=== PATIENT | female | born 1990 | race African-American/Black ===

== ENCOUNTER 2019-06-12 20:39 | Inpatient (IN) ==
[2019-06-12 21:26] LABS: Apearance,Urine Slightly Hazy (Clear); Bilirubin,Urine Negative (Negative); Blood, Urine Negative (Negative); Calcium Oxalate Crystals,Urine Many /HPF (Few); Glucose,Urine (UA) Negative (Negative); Hyaline Casts,Urine 3 /LPF (0-3); Ketones,Urine Negative (Negative); Mucus,Urine Moderate /LPF (Occasional); Nitrite,Urine Negative (Negative); Protein,Urine 30 MG/DL; RBC,Urine 4 /HPF (0-4); Squamous Epithelial Cell,Urine Occasional /HPF (0-10); Urine Color Yellow (Yellow); WBC,Urine 2 /HPF (0-6)
[2019-06-12 23:03] LABS: Basophils % 0.2 % (0.0-0.8); Eosinophils # 0.1 10*3/uL (0.0-0.87); Eosinophils % 0.5 % (0.00-10.9); Hematocrit 32.4 VOL% (35.7-47.0); Hemoglobin 10.3 GM/DL (12.0-16.0); Immature Granulocytes Absolute 0.09 #; Lymphocytes # 1.7 10*3/uL (1.4-4.0); Lymphocytes % 18.1 % (21.3-54.2); Mean Corpuscular HGB Conc 31.8 GM/DL (32-36); Mean Corpuscular Volume 79.6 FL (87-102); Mean Platelet Volume 8.9 FL (9.6-12.0); Monocytes % 9.6 % (1.7-12.7); NRBC # 0.03 10*3/uL; Neutrophils % 70.6 % (38.7-73.9); Platelet Count 235 T/CUMM (130-400); Red Blood Count 4.07 MC/CUMM (3.8-5.5); Red Cell Distribution Width 18.2 % (9.3-17.3); White Blood Count 9.2 T/CUMM (4-12)
[2019-06-12] MEDS: LACTATED RINGERS 1,000 ML IV SCH (23:05)
[2019-06-12 23:11] LABS: INR 0.9; PT Patient Result 9.5 SECS (9.6-12.2); Partial Thromboplastin Time 26.4 SECS (20.8-36.0)
[2019-06-12 23:18] LABS: Bilirubin,Direct < 0.100 MG/DL (0.0-0.20)
[2019-06-12 23:22] LABS: Alanine Aminotransferase 14 U/L (13-56); Albumin 2.6 G/DL (3.4-5.0); Alkaline Phosphatase 170 U/L (45-117); Aspartate Amino Transferase 13 U/L (0-37); Bilirubin,Total < 0.39 MG/DL (0.2-1.0); Blood Urea Nitrogen 5 MG/DL (7-18); Calcium 8.4 MG/DL (8.5-10.1); Estimated Glom Filtration Rate 148 ML/MIN; Glucose 92 MG/DL (74-106); Osmolality,Calculated 277.3 MOS/KG (273-304)
[2019-06-13] MEDS: LACTATED RINGERS 1,000 ML IV SCH ×3 (07:05→21:57)
[2019-06-13] MEDS ORDERED: BUTORPHANOL 2 MG/ML VIAL IV PRN (08:08)
[2019-06-13] MEDS ORDERED: ONDANSETRON 4 MG/2 ML VIAL IV PRN ×2 (08:08→23:17)
[2019-06-13] MEDS ORDERED: NALOXONE 0.4 MG/ML VIAL IV PRN (20:57)
[2019-06-13] MEDS ORDERED: PROMETHAZINE 25 MG/1 ML VIAL IM ONE (20:57)
[2019-06-13] MEDS ORDERED: ePHEDrine 50 MG/ML AMP IV PRN (20:57)
[2019-06-13] MEDS ORDERED: fentaNYL 2 MCG/ROPIV 0.2% EPID 100 ML EPIDURAL SCH (21:00)
[2019-06-13] MEDS ORDERED: CITRIC ACID/SODIUM CITRATE 30 ML UDCUP ONE (21:08)
[2019-06-13] MEDS ORDERED: FAMOTIDINE 20 MG/2 ML VIAL IV ONE (21:11)
[2019-06-13] MEDS ORDERED: CITRIC ACID/SODIUM CITRATE 30 ML UDCUP PO ONE (21:11)
[2019-06-13] MEDS ORDERED: AMPICILLIN INJ 2,000 MG in SODIUM CHLORIDE 0.9% 100 ML IV SCH (22:00)
[2019-06-13] MEDS ORDERED: SODIUM CHLORIDE 0.9% 100 ML IV ONE (22:31)
[2019-06-13] MEDS ORDERED: OXYTOCIN/LR 20 UNIT/1,000 ML BAG IV ONE ×2 (22:37→23:17)
[2019-06-13] MEDS ORDERED: miSOPROStoL 200 MCG TABLET ONE ×2 (22:44→22:48)
[2019-06-13] MEDS ORDERED: METHYLERGONOVINE 0.2 MG/1 ML AMP ONE ×2 (22:45→22:49)
[2019-06-13] MEDS ORDERED: CARBOPROST TROMETHAMINE 250 MCG/ML AMP IM ONE ×2 (22:45→22:49)
[2019-06-13] MEDS ORDERED: DIPH/TET/ACEL PERT BOOSTER VACCINE 0.5 ML VIAL IM ONE (23:17)
[2019-06-13] MEDS ORDERED: oxyCODONE/ACETAMINOPHEN 5-325 MG TABLET PO PRN ×2 (23:17)
[2019-06-13] MEDS ORDERED: HYDROCORTISONE 2.5% RECTAL CREAM 30 GM TUBE TOP PRN (23:17)
[2019-06-13] MEDS ORDERED: BISACODYL 10 MG SUPP RECTAL PRN (23:17)
[2019-06-13] MEDS ORDERED: BENZOCAINE 20%/MENTHOL 0.5% SPRAY 56 GM CAN TOP PRN (23:17)
[2019-06-13] MEDS ORDERED: MEASLES/MUMPS/RUBELLA VACCINE 0.5 ML VIAL SUBCUT ONE (23:17)
[2019-06-13] MEDS ORDERED: ACETAMINOPHEN 325 MG TABLET PO PRN (23:17)
[2019-06-13] MEDS ORDERED: RHO(D) IMMUNE GLOBULIN 300 MCG SYRINGE IM ONE (23:17)
[2019-06-13] MEDS ORDERED: WITCH HAZEL PADS 100/JAR TOP PRN (23:17)
[2019-06-13] MEDS ORDERED: LANOLIN 50% CREAM 0.3 OZ TUBE TOP PRN (23:17)
[2019-06-13] MEDS ORDERED: METHYLERGONOVINE 0.2 MG/1 ML AMP IM ONE ×2 (23:35→23:41)
[2019-06-14] MEDS: IBUPROFEN 800 MG TABLET PO PRN ×3 (02:50→17:52)
[2019-06-14 05:29] LABS: Basophils % 0.2 % (0.0-0.8); Eosinophils % 0.1 % (0.00-10.9); Hematocrit 25.4 VOL% (35.7-47.0); Hemoglobin 8.2 GM/DL (12.0-16.0); Immature Granulocytes % 0.6 %; Immature Granulocytes Absolute 0.07 #; Lymphocytes # 1.3 10*3/uL (1.4-4.0); Lymphocytes % 11.1 % (21.3-54.2); Mean Corpuscular HGB Conc 32.3 GM/DL (32-36); Mean Corpuscular Volume 78.9 FL (87-102); Mean Platelet Volume 9.2 FL (9.6-12.0); Monocytes % 7.9 % (1.7-12.7); NRBC # 0.02 10*3/uL; Neutrophils % 80.1 % (38.7-73.9); Platelet Count 199 T/CUMM (130-400); Red Blood Count 3.22 MC/CUMM (3.8-5.5); Red Cell Distribution Width 17.9 % (9.3-17.3)
[2019-06-14] MEDS: DOCUSATE SODIUM 100 MG CAPSULE PO SCH ×2 (09:30→21:16)
[2019-06-15 08:03] VITALS: BP 126/69
[2019-06-15] MEDS: DOCUSATE SODIUM 100 MG CAPSULE PO SCH (08:46)
== END 2019-06-15 13:10 | disposition home or self-care (01) | DRG 560 ==
LOC: N.LDOUT 20:39 → N.LD 20:41 → N.OB 06-14 02:30
PROVIDERS: ADMIT Specialist; ATTEND Specialist

== ENCOUNTER 2020-09-04 11:21 | Inpatient (IN) ==
[2020-09-04 12:11] LABS: Bacteria,Urine Few /HPF (Few); Bilirubin,Urine Negative (Negative); Blood, Urine Negative (Negative); Glucose,Urine (UA) Negative (Negative); Ketones,Urine Negative (Negative); Mucus,Urine Occasional /LPF (Occasional); Nitrite,Urine Negative (Negative); Protein,Urine 100 MG/DL; RBC,Urine 1 /HPF (0-4); Squamous Epithelial Cell,Urine Moderate /HPF (0-10); Urine Appearance Slightly Hazy (Clear); Urine Color Yellow (Yellow); Urine Specific Gravity 1.018 (1.001-1.035); Urine Urobilinogen < 2.0 EU/DL (0.2-1.0); WBC,Urine 8 /HPF (0-6)
[2020-09-04] MEDS ORDERED: hydrALAZINE 20 MG/1 ML VIAL IV ONE ×2 (12:24→12:55)
[2020-09-04] MEDS: LABETALOL 200 MG TABLET PO SCH ×2 (12:35→22:05)
[2020-09-04 12:41] LABS: Basophils % 0.3 % (0.0-0.8); Eosinophils # 0.1 10*3/uL (0.0-0.87); Eosinophils % 0.7 % (0.00-10.9); Hematocrit 33.8 VOL% (35.7-47.0); Hemoglobin 10.7 GM/DL (12.0-16.0); Immature Granulocytes % 0.7 %; Immature Granulocytes Absolute 0.05 #; Lymphocytes # 1.4 10*3/uL (1.4-4.0); Lymphocytes % 18.9 % (21.3-54.2); Mean Corpuscular HGB Conc 31.7 GM/DL (32-36); Mean Corpuscular Volume 74.6 FL (87-102); Mean Platelet Volume 9.9 FL (9.6-12.0); Monocytes % 7.2 % (1.7-12.7); Neutrophils % 72.2 % (38.7-73.9); Platelet Count 282 T/CUMM (130-400); Red Blood Count 4.53 MC/CUMM (3.8-5.5); Red Cell Distribution Width 16.4 % (9.3-17.3); White Blood Count 7.6 T/CUMM (4-12)
[2020-09-04] MEDS ORDERED: MEPERIDINE 50 MG/1 ML VIAL IM PRN (12:46)
[2020-09-04] MEDS ORDERED: ONDANSETRON 4 MG/2 ML VIAL IV PRN (12:46)
[2020-09-04] MEDS ORDERED: BUTORPHANOL 2 MG/ML VIAL IV PRN (12:46)
[2020-09-04 12:57] LABS: Albumin 2.4 G/DL (3.4-5.0); Bilirubin,Total 1.4 MG/DL (0.2-1.0); Calcium 8.4 MG/DL (8.5-10.1); Osmolality,Calculated 271.7 MOS/KG (273-304); Potassium 3.7 MMOL/L (3.5-5.1); Total Protein 6.9 G/DL (6.4-8.2); Uric Acid 4.5 MG/DL (2.6-6.0)
[2020-09-04] MEDS ORDERED: OXYTOCIN/LR 20 UNIT/1,000 ML BAG IV SCH (13:00)
[2020-09-04 13:09] LABS: INR 0.9; PT Patient Result 9.6 SECS (9.8-11.9); Partial Thromboplastin Time 26.9 SECS (23.9-33.8)
[2020-09-04] MEDS ORDERED: AMPICILLIN INJ 2,000 MG in SODIUM CHLORIDE 0.9% 100 ML IV ONE (13:30)
[2020-09-04] MEDS: LACTATED RINGERS 1,000 ML IV SCH ×2 (14:02→17:42)
[2020-09-04] MEDS ORDERED: hydrALAZINE 20 MG/1 ML VIAL IV PRN (16:06)
[2020-09-04] MEDS ORDERED: NALOXONE 0.4 MG/ML VIAL IV PRN (16:13)
[2020-09-04] MEDS ORDERED: hydrOXYzine HCL 25 MG/1 ML VIAL IM PRN (16:13)
[2020-09-04] MEDS ORDERED: CITRIC ACID/SODIUM CITRATE 30 ML UDCUP PO ONE (16:13)
[2020-09-04] MEDS ORDERED: FAMOTIDINE 20 MG/2 ML VIAL IV ONE ×2 (16:13→16:16)
[2020-09-04] MEDS ORDERED: PROMETHAZINE 25 MG/1 ML VIAL IM PRN (16:13)
[2020-09-04] MEDS ORDERED: diphenhydrAMINE 50 MG/1 ML VIAL IV PRN (16:13)
[2020-09-04] MEDS ORDERED: ePHEDrine 50 MG/ML VIAL IV PRN ×2 (16:13)
[2020-09-04] MEDS ORDERED: ePHEDrine 50 MG/ML VIAL ONE (16:15)
[2020-09-04] MEDS: fentaNYL 2 MCG/ROPIV 0.2% EPID 100 ML EPIDURAL SCH (16:43)
[2020-09-04 17:27] LABS: Bacteria,Urine Occasional /HPF (Few); Bilirubin,Urine Negative (Negative); Blood, Urine Negative (Negative); Glucose,Urine (UA) Negative (Negative); Ketones,Urine 20 mg/dL (Negative); Mucus,Urine Occasional /LPF (Occasional); Nitrite,Urine Negative (Negative); Protein,Urine 100 MG/DL; RBC,Urine 2 /HPF (0-4); Squamous Epithelial Cell,Urine Occasional /HPF (0-10); Urine Appearance CLEAR (Clear); Urine Color Yellow (Yellow); Urine Specific Gravity 1.032 (1.001-1.035); Urine Urobilinogen < 2.0 EU/DL (0.2-1.0); WBC,Urine 2 /HPF (0-6)
[2020-09-04] MEDS: AMPICILLIN INJ 1,000 MG in SODIUM CHLORIDE 0.9% 100 ML IV SCH ×2 (17:36→21:38)
[2020-09-04] MEDS ORDERED: miSOPROStoL 200 MCG TABLET ONE (23:14)
[2020-09-04] MEDS ORDERED: TRANEXAMIC ACID 1,000 MG/10 ML VIAL ONE (23:14)
[2020-09-04] MEDS ORDERED: METHYLERGONOVINE 0.2 MG/1 ML AMP ONE (23:14)
[2020-09-04] MEDS ORDERED: CARBOPROST TROMETHAMINE 250 MCG/ML AMP IM ONE (23:15)
[2020-09-04] MEDS ORDERED: SODIUM CHLORIDE 0.9% 0 ML IV ONE (23:16)
[2020-09-05] MEDS: fentaNYL 2 MCG/ROPIV 0.2% EPID 100 ML EPIDURAL SCH (01:09)
[2020-09-05] MEDS ORDERED: ONDANSETRON 4 MG/2 ML VIAL IV PRN (01:54)
[2020-09-05] MEDS ORDERED: DIPH/TET/ACEL PERT BOOSTER VACCINE 0.5 ML VIAL IM ONE (01:54)
[2020-09-05] MEDS ORDERED: BISACODYL 10 MG SUPP RECTAL PRN (01:54)
[2020-09-05] MEDS ORDERED: HYDROCORTISONE 2.5% RECTAL CREAM 30 GM TUBE TOP PRN (01:54)
[2020-09-05] MEDS ORDERED: WITCH HAZEL PADS 100/JAR TOP PRN (01:54)
[2020-09-05] MEDS ORDERED: ACETAMINOPHEN 325 MG TABLET PO PRN (01:54)
[2020-09-05] MEDS ORDERED: OXYTOCIN/LR 20 UNIT/1,000 ML BAG IV ONE (01:54)
[2020-09-05] MEDS ORDERED: RHO(D) IMMUNE GLOBULIN 300 MCG SYRINGE IM ONE (01:54)
[2020-09-05] MEDS ORDERED: LANOLIN 50% CREAM 0.3 OZ TUBE TOP PRN (01:54)
[2020-09-05] MEDS ORDERED: BENZOCAINE 20%/MENTHOL 0.5% SPRAY 56 GM CAN TOP PRN (01:54)
[2020-09-05] MEDS ORDERED: MEASLES/MUMPS/RUBELLA VACCINE 0.5 ML VIAL SUBCUT ONE (01:54)
[2020-09-05] MEDS ORDERED: oxyCODONE/ACETAMINOPHEN 5-325 MG TABLET PO PRN ×2 (01:54)
[2020-09-05 02:23] LABS: Cord Arterial Blood HCO3 21.5 MMOL/L
[2020-09-05 02:26] LABS: Cord Venous Blood HCO3 22.6 MMOL/L; Cord Venous Blood PCO2 43.1 MMHG; Cord Venous Blood PO2 28.1
[2020-09-05] MEDS: IBUPROFEN 800 MG TABLET PO PRN ×2 (05:40→17:11)
[2020-09-05 05:57] LABS: Basophils % 0.2 % (0.0-0.8); Eosinophils % 0.1 % (0.00-10.9); Hematocrit 30.2 VOL% (35.7-47.0); Hemoglobin 9.4 GM/DL (12.0-16.0); Immature Granulocytes % 0.9 %; Immature Granulocytes Absolute 0.11 #; Lymphocytes # 1.5 10*3/uL (1.4-4.0); Lymphocytes % 12.3 % (21.3-54.2); Mean Corpuscular HGB Conc 31.1 GM/DL (32-36); Mean Corpuscular Volume 75.7 FL (87-102); Mean Platelet Volume 9.6 FL (9.6-12.0); Neutrophils % 81.5 % (38.7-73.9); Platelet Count 253 T/CUMM (130-400); Red Blood Count 3.99 MC/CUMM (3.8-5.5); Red Cell Distribution Width 16.9 % (9.3-17.3); White Blood Count 12.5 T/CUMM (4-12)
[2020-09-05] MEDS: DOCUSATE SODIUM 100 MG CAPSULE PO SCH ×2 (10:01→21:21)
[2020-09-05] MEDS: LABETALOL 200 MG TABLET PO SCH ×2 (10:01→21:21)
[2020-09-06] MEDS: LABETALOL 200 MG TABLET PO SCH ×2 (08:33→20:15)
[2020-09-06] MEDS: DOCUSATE SODIUM 100 MG CAPSULE PO SCH ×2 (08:34→20:15)
[2020-09-06] MEDS: IBUPROFEN 800 MG TABLET PO PRN ×2 (10:41→20:15)
[2020-09-07] MEDS: IBUPROFEN 800 MG TABLET PO PRN (08:55)
[2020-09-07] MEDS: DOCUSATE SODIUM 100 MG CAPSULE PO SCH (08:55)
[2020-09-07] MEDS: LABETALOL 200 MG TABLET PO SCH (08:55)
[2020-09-07 11:32] VITALS: BP 152/80
== END 2020-09-07 13:03 | disposition home or self-care (01) | DRG 560 ==
LOC: N.LDOUT 11:21 → N.LD 11:27 → N.OB 09-05 04:30
PROVIDERS: ADMIT Specialist; ATTEND Specialist